=== PATIENT | male | born 1955 | race Caucasian/White ===

== ENCOUNTER 2018-10-10 00:25 | Inpatient (IN) | payer SELFPAY ==
[2018-10-10] VITALS (7 sets, daily range): BP systolic 100–141; BP diastolic 54–89
[~2018-10-10] VITALS: Ht 167.6 cm; Wt 87.0 kg
--- NOTE | 2018-10-10 00:25 | NUR ---
ED Nurse Note: pt brought in by [facility] from home c/c chest pain x 3hrs, pt reports it feels similar to the one he had before when he had heart attack, pt states he had stent placed in as well in 2013. pt states pain is heavy and pressure like, rates 8/10. pt AA&ox4, gcs=15, skin warm and dry, resp even and unlabored on RA, -n/v/d, will cont monitor. vss.
--- NOTE | 2018-10-10 00:47 | Emergency Room Report ---
History of Present Illness General Chief Complaint: Chest Pain Source: Patient, EMS Present Illness HPI Patient is a 63-year-old male presents after increased chest and abdominal pain. Patient said he had onset during rest. He had onset of symptoms approximately 3 hours prior to arrival. 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 He reports having onset of pain during supine position. He reports having some increased epigastric discomfort. He states his been off of his medications which include metoprolol as well as lisinopril. He also states his been off of his Topamax. He has prior history of chronic migraines. He denies any fever. He states that he had prior episodes of heart attack several years ago. He has current had a stent. He states he had previous stent placement at [facility].Patient states that he took 5 Excedrin Migraine today.Patient reports being off of his other medications for heart. Allergies: Coded Allergies: No Known Allergies (Unverified , 10/10/18) Patient History Past Medical History: see triage record Reviewed Nursing Documentation: PMH: Agreed; PSxH: Agreed Nursing Documentation-PMH Past Medical History: No History, Except For Hx Cardiac Problems: Yes - HEART ATTACK, STENT Review of Systems All Other Systems: negative except mentioned in HPI Physical Exam Vital Signs Date Time Temp Pulse Resp B/P (MAP) Pulse Ox O2 Delivery O2 Flow Rate FiO2 10/10/18 00:27 98.8 109 18 139/77 (97) 100 Room Air Sp02 EP Interpretation: reviewed, normal General Appearance: normal inspection, well appearing, no apparent distress, alert, GCS 15, Chronically Ill Head: atraumatic ENT: normal ENT inspection, hearing grossly normal, normal voice Neck: normal inspection, full range of motion, supple, no bony tend Respiratory: normal inspection, lungs clear, normal breath sounds, no respiratory distress, no retraction, no wheezing Cardiovascular #1: regular rate, rhythm, no edema Gastrointestinal: normal inspection, normal bowel sounds, non tender, soft, no guarding Musculoskeletal: back normal, other - fasciotomy scar left leg Neurologic: normal inspection, alert, oriented x3, responsive, perinatal tech III-XII nml as tested, speech normal, sensory deficit Psychiatric: normal inspection, judgement/insight normal, mood/affect normal Skin: no rash Medical Decision Making Diagnostic Impression: Primary Impression: Chest pain Additional Impression: ACS (acute coronary syndrome) ER Course Patient presented for chest pain. Differential diagnosis included but was not limited to acute coronary syndrome, pulmonary embolism, pneumonia, aortic dissection, shingles, pneumothorax, aortic dissection, esophageal rupture, pericarditis. Because of complexity of patient's case laboratory testing and imaging studies were ordered. Patient's laboratory testing was notable for minimally elevated creatinine. Nitroglycerin. Patient was given nitroglycerin. Patient started on Topamax due to prior history of migraine headache. Dr. Ayad Gambino was contacted for Dr. Varghese for inpatient management Labs Test 10/10/18 00:37 White Blood Count 7.9 K/UL (4.8-10.8) Red Blood Count 5.20 M/UL (4.70-6.10) Hemoglobin 16.1 G/DL (14.2-18.0) Hematocrit 49.1 % (42.0-52.0) Mean Corpuscular Volume 94 FL (80-99) Mean Corpuscular Hemoglobin 31.0 PG (27.0-31.0) Mean Corpuscular Hemoglobin Concent 32.8 G/DL (32.0-36.0) Red Cell Distribution Width 12.8 % (11.6-14.8) Platelet Count 239 K/UL (150-450) Mean Platelet Volume 6.8 FL (6.5-10.1) Neutrophils (%) (Auto) 74.2 % (45.0-75.0) Lymphocytes (%) (Auto) 17.3 % (20.0-45.0) Monocytes (%) (Auto) 6.2 % (1.0-10.0) Eosinophils (%) (Auto) 1.8 % (0.0-3.0) Basophils (%) (Auto) 0.5 % (0.0-2.0) Prothrombin Time 10.2 SEC (9.30-11.50) Prothromb Time International Ratio 1.0 (0.9-1.1) Activated Partial Thromboplast Time 26 SEC (23-33) Sodium Level 140 MMOL/L (136-145) Potassium Level 4.0 MMOL/L (3.5-5.1) Chloride Level 104 MMOL/L (98-107) Carbon Dioxide Level 23 MMOL/L (21-32) Anion Gap 13 mmol/L (5-15) Blood Urea Nitrogen 18 mg/dL (7-18) Creatinine 1.7 MG/DL (0.55-1.30) Estimat Glomerular Filtration Rate 40.9 mL/min (>60) Glucose Level 91 MG/DL (74-106) Calcium Level 8.9 MG/DL (8.5-10.1) Total Bilirubin 0.5 MG/DL (0.2-1.0) Aspartate Amino Transf (AST/SGOT) 46 U/L (15-37) Alanine Aminotransferase (ALT/SGPT) 26 U/L (12-78) Alkaline Phosphatase 91 U/L (46-116) Total Creatine Kinase 404 U/L (26-308) Creatine Kinase MB 5.9 NG/ML (0.0-3.6) Creatine Kinase MB Relative Index 1.4 Troponin I 0.031 ng/mL (0.000-0.056) Pro-B-Type Natriuretic Peptide 329 pg/mL (0-125) Total Protein 6.8 G/DL (6.4-8.2) Albumin 3.6 G/DL (3.4-5.0) Globulin 3.2 g/dL Albumin/Globulin Ratio 1.1 (1.0-2.7) Lipase 131 U/L (73-393) Salicylates Level 17.7 ug/mL (2.8-20) Serum Alcohol < 3 mg/dL EKG Diagnostic Results Rate: normal Rhythm: NSR ST Segments: no acute changes Rhythm Strip Diag. Results EP Interpretation: yes Rhythm: NSR, no PVC's, no ectopy Last Vital Signs Date Time Temp Pulse Resp B/P (MAP) Pulse Ox O2 Delivery O2 Flow Rate FiO2 10/10/18 00:27 98.8 109 18 139/77 (97) 100 Room Air Status: improved Disposition: PLACE IN OBSERVATION Condition: Stable Bruce Palafox MD Oct 10, 2018 00:47
--- NOTE | 2018-10-10 00:48 | NUR ---
ED Nurse Note: pt reports she took 5 of excedrin migraine, ERMD notified regarding administering ASA, medication was withheld due to pt's condition.
[2018-10-10] MEDS ORDERED: Topiramate 100mg tab ORAL ONE (01:00)
[2018-10-10] MEDS ORDERED: Aspirin Baby 81mg ORAL ONE (01:00)
[2018-10-10] MEDS: Nitroglycerin Subl 0.4mg tab SL PRN ×3 (01:04→01:28)
--- NOTE | 2018-10-10 01:10 | NUR ---
ED Nurse Note: verified w/ ERMD regarding nitro dose, pt was given 2 rounds on field, ermd stated it's okay to give more after one round of nitro based on pt's condition and bp.
[2018-10-10 01:14] LABS: BASOPHILS % (AUTO) 0.5 % (0.0-2.0); EOSINOPHILS % (AUTO) 1.8 % (0.0-3.0); HEMATOCRIT 49.1 % (42.0-52.0); HEMOGLOBIN 16.1 G/DL (14.2-18.0); LYMPHOCYTES % (AUTO) 17.3 % (20.0-45.0); MEAN CORPUSCULAR VOLUME 94 FL (80-99); MONOCYTES % (AUTO) 6.2 % (1.0-10.0); NEUTROPHILS % (AUTO) 74.2 % (45.0-75.0); PLATELET COUNT 239 K/UL (150-450); RED CELL DISTRIBUTION WIDTH 12.8 % (11.6-14.8); WHITE BLOOD COUNT 7.9 K/UL (4.8-10.8)
[2018-10-10 01:21] LABS: ANION GAP 13 mmol/L (5-15); BLOOD UREA NITROGEN 18 mg/dL (7-18); CALCIUM 8.9 MG/DL (8.5-10.1); CARBON DIOXIDE 23 MMOL/L (21-32); CHLORIDE 104 MMOL/L (98-107); CREATININE 1.7 MG/DL (0.55-1.30); SODIUM 140 MMOL/L (136-145)
--- NOTE | 2018-10-10 01:29 | NUR ---
ED Nurse Note: 0115 138/85 0.4mg nitro given 0120 123/85 0.4mg nitro given 0125 124/79 0.4mg nitro given, ERMD notified.
[2018-10-10 01:30] LABS: ALANINE AMINOTRANSFERASE 26 U/L (12-78); ALBUMIN 3.6 G/DL (3.4-5.0); ALBUMIN/GLOBULIN RATIO 1.1 (1.0-2.7); ALKALINE PHOSPHATASE 91 U/L (46-116); ASPARTATE AMINO TRANSFERASE 46 U/L (15-37); BILIRUBIN,TOTAL 0.5 MG/DL (0.2-1.0); CREATINE KINASE 404 U/L (26-308)
--- NOTE | 2018-10-10 02:00 | NUR ---
ED Nurse Note: pt back from CT, pt reports pain is better, resting at this time, extra blanket provided for comfort, pt on o2 =2L/min for comfort, no sx distress at this time, will cont monitor. Addendum: 10/10/[address] -> XRAY.
[2018-10-10 02:18] LABS: CKMB 5.9 NG/ML (0.0-3.6)
--- NOTE | 2018-10-10 03:24 | NUR ---
ED Nurse Note: report given to ARTHUR goel from tele.
[2018-10-10] MEDS ORDERED: EXCEDRIN MIGRA1 EAC1 PO (03:26)
[2018-10-10] MEDS ORDERED: METOPROLOL SUCC25 MG ORAL (03:26)
[2018-10-10] MEDS ORDERED: LISINOPRIL5 MG ORAL (03:26)
[2018-10-10] MEDS ORDERED: ASPIRIN81 M3 PO (03:26)
[2018-10-10] MEDS ORDERED: TOPAMAX100 MG ORAL (03:26)
[2018-10-10] MEDS ORDERED: OMEPRAZOLE10 M1 ORAL (03:26)
--- NOTE | 2018-10-10 03:29 | NUR ---
ED Nurse Note: pt transferred to tele via zac carpenter, sergior on threat monitoring analyst, no sx resp distress, care endorsed to Yonatan GIBSON, all belongings sent w/ pt w/ completed list, med recon done, receiving rn notified regarding verification of medication, unk dose.
--- NOTE | 2018-10-10 07:40 | NUR ---
NURSE NOTES: Report received from ARTHUR Tam. Pt is lying in semi-fowlers with no signs of distress. A+Ox4, denies pain/SOB. Iv site is patent and running fluids at prescribed rate. Respirations are even and unlabored on room air. Bed is at lowest position, brakes engaged, siderails x2, bed alarm on, and call light within reach. Pt is in stable condition; will continue to monitor.
--- NOTE | 2018-10-10 07:40 | NUR ---
HAND-OFF: Report given to Sommer GIBSON. Plan of care endorsed.
[2018-10-10] MEDS ORDERED: Nitroglycerin Subl 0.4mg tab SL PRN (08:45)
[2018-10-10] MEDS ORDERED: Mylanta II UD 30ml ORAL PRN (08:45)
[2018-10-10] MEDS: Metoprolol Tartrate 12.5mg TAB ORAL SCH ×2 (08:49→20:37)
[2018-10-10] MEDS: Topiramate 100mg tab ORAL SCH (09:01)
[2018-10-10] MEDS: Aspirin Baby 81mg ORAL SCH (09:01)
[2018-10-10] MEDS: Lisinopril 10mg tab ORAL SCH ×2 (09:01→20:38)
--- NOTE | 2018-10-10 10:30 | NUR ---
CASE MANAGEMENT:REVIEW 63 YR OLD FEMALE BIBA FROM HOME CC: CHEST PAIN SI: ACS 98.7 109 18 139/77 100% ON RA CR+1.7 TCK+404 CKMB+5.9 TROPONIN(-) X2 IS: NITRO X2 GIVEN MANAGER ENVIRONMENTAL HEALTH NTG SL X3 ASA PO IV PEPCID TOPAMAX PO X1 : TO TELEMETRY
--- NOTE | 2018-10-10 10:30 | History and Physical Report ---
DATE OF ADMISSION: 10/10/2018 REASON FOR ADMISSION: Chest pain. HISTORY OF PRESENT ILLNESS: The patient is a pleasant 63-year-old gentleman with known coronary artery disease, status post myocardial infarction and stent placement back in 2013. The patient has been on beta gloria and aspirin since the interval. He presented to the emergency room overnight for evaluation and care of chest pain. It had started approximately three hours prior to presentation with light activity. The patient said he was just walking around when chest pain had started. His last percutaneous coronary intervention was at [facility]. He took five Excedrin during the day for his migraine. He had not taken his Topamax. He is currently resting comfortably. No nausea, vomiting, or diarrhea currently. PAST MEDICAL HISTORY: 1. Hypertension. 2. Coronary artery disease. 3. Chronic migraines. PAST SURGICAL HISTORY: Status post PCI. ALLERGIES: No known drug allergies. SOCIAL HISTORY: No tobacco, alcohol, or illicit drug use. FAMILY HISTORY: Positive for hypertension. REVIEW OF SYSTEMS: NEUROLOGIC: The patient was having chronic headaches, migraines. CARDIOVASCULAR: He was having chest pressure, tightness, and pain. PULMONARY: No difficulty breathing, productive cough, or sputum. GASTROINTESTINAL/GENITOURINARY: No change in urinary or bowel habits. No nausea, vomiting, or diarrhea. ENDOCRINOLOGY: No night sweats, fevers, or chills. MUSCULOSKELETAL: The patient is feeling weak, tired, and fatigued. PHYSICAL EXAMINATION: VITAL SIGNS: Blood pressure 136/78, respiratory rate 24, pulse 83, and temperature 97.7. 100% oxygen saturation on 2 L nasal cannula. GENERAL: The patient is awake and alert, not in distress. HEENT: Extraocular muscles intact. No lymphadenopathy noted. Oropharyngeal mucosa is clear and dry. CARDIOVASCULAR: S1, S2. No murmurs, rubs, or gallops. Regular rate. PULMONARY: Clear to auscultation bilaterally. No rales, rhonchi, or wheezes. ABDOMEN: Nondistended and nontender. Good bowel sounds in all four quadrants. EXTREMITIES: No edema noted. LABORATORY DATA: Labs dated 10/10/2018, sodium 140, potassium 4, troponin 0.031, creatinine 1.7. White cell count 7.9, hemoglobin 16.1, and platelet count 339. ASSESSMENT AND PLAN: 1. Acute coronary syndrome, chest pain. Repeat stat troponin has been ordered. The patient is on aspirin and beta gloria. Awaiting Cardiology to evaluate and proceed accordingly. 2. Hypertension, stable. Continue current antihypertensive regimen. The patient on beta-gloria and CHASITY inhibitor. 3. Chronic migraines. Reinitiate Topamax. 4. Acute kidney injury with creatinine 1.7, likely from component of volume depletion. Continue IV fluids and repeat BMP . 5. DVT prophylaxis with SCDs. Ayad Gambino MD DR: BRISEYDA JOB#: [id number] CC:
--- NOTE | 2018-10-10 11:44 | Consultation ---
History of Present Illness General Date patient seen: Oct 10, 2018 Time patient seen: 11:43 Chief Complaint: Chest Pain Present Illness HPI The patient is a pleasant 63-year-old gentleman with known coronary artery disease, status post myocardial infarction and stent placement back in 2013. Patient presents with new onset chest pain similar to previous. Troponin negative. Chest pain started randomly during exertion. He has hx of migraine and HTN, controlled on medications. No fevers no travel no sick contacts. Allergies: Coded Allergies: No Known Allergies (Unverified , 10/10/18) Medication History Scheduled Lisinopril (Lisinopril*), Unknown Dose ORAL DAILY, (Reported) Metoprolol Succinate* (Metoprolol Succinate*), Unknown Dose ORAL DAILY, ( Reported) Omeprazole (Omeprazole), Unknown Dose ORAL DAILY, (Reported) Topiramate (Topamax), Unknown Dose ORAL EVERY 12 HOURS, (Reported) Miscellaneous Medications Aspirin (Aspirin), Unknown Dose PO, (Reported) Aspirin/Acetaminophen/Caffeine (Excedrin Migraine Caplet), Unknown Dose PO, ( Reported) Patient History Healthcare decision maker Resuscitation status Full Code Advanced Directive on File Review of Systems Constitutional: Reports: no symptoms Eye: Reports: no symptoms ENT: Reports: no symptoms Respiratory: Reports: no symptoms Cardiovascular: Reports: chest pain Gastrointestinal: Reports: no symptoms Genitourinary: Reports: no symptoms Musculoskeletal: Reports: no symptoms Skin: Reports: no symptoms Psychiatric: Reports: no symptoms Neurological: Reports: no symptoms Endocrine: Reports: no symptoms Hematologic/Lymphatic: Reports: no symptoms Physical Exam General Appearance: no apparent distress, alert Lines, tubes and drains: peripheral HEENT: normocephalic Neck: non-tender, normal alignment, supple, normal inspection Respiratory/Chest: chest wall non-tender, lungs clear Breasts: no masses Cardiovascular/Chest: normal peripheral pulses, normal rate, regular rhythm Abdomen: normal bowel sounds, non tender, soft, no organomegaly, no mass Extremities: normal range of motion, non-tender, normal inspection, no calf tenderness Skin Exam: normal pigmentation, warm/dry Neurologic: director of strategic partnerships II-XII grossly normal, no motor/sensory deficits, oriented x 3 Last 24 Hour Vital Signs Date Time Temp Pulse Resp B/P (MAP) Pulse Ox O2 Delivery O2 Flow Rate FiO2 10/10/18 09:01 141/82 10/10/18 09:00 Room Air 10/10/18 08:00 98.1 91 22 141/82 (101) 98 10/10/18 08:00 89 10/10/18 03:45 Nasal Cannula 2.0 10/10/18 03:40 97.7 83 24 136/78 (97) 98 10/10/18 03:39 80 10/10/18 03:29 98.4 78 18 148/105 100 Nasal Cannula 2.0 10/10/18 01:50 98.8 78 18 124/89 100 Room Air 10/10/18 01:28 124/89 10/10/18 01:25 123/85 10/10/18 01:04 138/85 10/10/18 00:50 98 18 Room Air 10/10/18 00:50 98.8 96 18 135/86 100 Room Air 10/10/18 00:27 98.8 109 18 139/77 (97) 100 Room Air Intake and Output 10/09/18 10/10/18 19:00 07:00 Intake Total 307.5 ml Balance 307.5 ml Intake IV Total 187.5 ml Other 120 ml # Voids 2 Laboratory Tests Test 10/10/18 00:37 10/10/18 09:20 White Blood Count 7.9 K/UL (4.8-10.8) Red Blood Count 5.20 M/UL (4.70-6.10) Hemoglobin 16.1 G/DL (14.2-18.0) Hematocrit 49.1 % (42.0-52.0) Mean Corpuscular Volume 94 FL (80-99) Mean Corpuscular Hemoglobin 31.0 PG (27.0-31.0) Mean Corpuscular Hemoglobin Concent 32.8 G/DL (32.0-36.0) Red Cell Distribution Width 12.8 % (11.6-14.8) Platelet Count 239 K/UL (150-450) Mean Platelet Volume 6.8 FL (6.5-10.1) Neutrophils (%) (Auto) 74.2 % (45.0-75.0) Lymphocytes (%) (Auto) 17.3 % (20.0-45.0) L Monocytes (%) (Auto) 6.2 % (1.0-10.0) Eosinophils (%) (Auto) 1.8 % (0.0-3.0) Basophils (%) (Auto) 0.5 % (0.0-2.0) Prothrombin Time 10.2 SEC (9.30-11.50) Prothromb Time International Ratio 1.0 (0.9-1.1) Activated Partial Thromboplast Time 26 SEC (23-33) Sodium Level 140 MMOL/L (136-145) Potassium Level 4.0 MMOL/L (3.5-5.1) Chloride Level 104 MMOL/L (98-107) Carbon Dioxide Level 23 MMOL/L (21-32) Anion Gap 13 mmol/L (5-15) Blood Urea Nitrogen 18 mg/dL (7-18) Creatinine 1.7 MG/DL (0.55-1.30) H Estimat Glomerular Filtration Rate 40.9 mL/min (>60) Glucose Level 91 MG/DL (74-106) Calcium Level 8.9 MG/DL (8.5-10.1) Total Bilirubin 0.5 MG/DL (0.2-1.0) Aspartate Amino Transf (AST/SGOT) 46 U/L (15-37) H Alanine Aminotransferase (ALT/SGPT) 26 U/L (12-78) Alkaline Phosphatase 91 U/L (46-116) Total Creatine Kinase 404 U/L (26-308) H Creatine Kinase MB 5.9 NG/ML (0.0-3.6) H Creatine Kinase MB Relative Index 1.4 Troponin I 0.031 ng/mL (0.000-0.056) 0.014 ng/mL (0.000-0.056) Pro-B-Type Natriuretic Peptide 329 pg/mL (0-125) H Total Protein 6.8 G/DL (6.4-8.2) Albumin 3.6 G/DL (3.4-5.0) Globulin 3.2 g/dL Albumin/Globulin Ratio 1.1 (1.0-2.7) Lipase 131 U/L (73-393) Salicylates Level 17.7 ug/mL (2.8-20) Serum Alcohol < 3 mg/dL Height (Feet): 5 Height (Inches): 6.00 Weight (Pounds): 1782 Medications Current Medications Medications (Trade) Dose Ordered Sig/Ramone Route PRN Reason Start Time Stop Time Status Last Admin Dose Admin Acetaminophen (Tylenol) 650 mg Q4H PRN ORAL Mild Pain (Pain Scale 1-3) 10/10/18 08:45 11/09/18 08:44 Al Hydroxide/Mg Hydroxide (Mylanta II) 30 ml Q6H PRN ORAL dyspepsia 10/10/18 08:45 11/09/18 08:44 Aspirin (ASA) 81 mg DAILY ORAL 10/10/18 09:00 11/09/18 08:59 10/10/18 09:01 Dextrose (Dextrose 50%) 25 ml Q30M PRN IV Hypoglycemia 10/10/18 08:45 11/09/18 08:44 Dextrose (Dextrose 50%) 50 ml Q30M PRN IV Hypoglycemia 10/10/18 08:45 11/09/18 08:44 Diphenhydramine HCl (Benadryl) 25 mg Q6H PRN ORAL Itching/Pruritis 10/10/18 08:45 11/09/18 08:44 Famotidine (Pepcid) 40 mg DAILY ORAL 10/10/18 09:00 11/09/18 08:59 10/10/18 09:01 Lisinopril (Zestril) 10 mg Q12HR ORAL 10/10/18 09:00 11/09/18 08:59 10/10/18 09:01 Metoprolol Tartrate (Lopressor) 12.5 mg Q12HR ORAL 10/10/18 09:00 11/09/18 08:59 Nitroglycerin (Ntg) 0.4 mg Q5M PRN SL Prn Chest Pain 10/10/18 08:45 11/09/18 08:44 Ondansetron HCl (Zofran) 4 mg Q6H PRN IVP Nausea & Vomiting 10/10/18 08:45 11/09/18 08:44 Sodium Chloride 1,000 ml @ 75 mls/hr [id number] IV 10/10/18 04:15 11/09/18 04:14 10/10/18 04:37 Topiramate (Topamax) 100 mg DAILY ORAL 10/10/18 09:00 11/09/18 08:59 10/10/18 09:01 Assessment/Plan Status: stable Assessment/Plan: Assessment Chest pain coronary artery disease Unstable angina Hypertension Migraines GLORIA PLAN -aspirin -statin -nitro prn -Hold heparin -serial EKG/troponin -Stress test to evaluate for ischemia given hx of DC/PCI -IV fluid hydration -Continue BP medications -TTE to evaluate LV function Cliff Harris MD Oct 10, 2018 11:44
--- NOTE | 2018-10-10 12:02 | Diagnostic Imaging Report ---
Indication: Chest pain Technique: One view of the chest Comparison: none Findings: Heart size is borderline enlarged. Lungs and pleural spaces are clear. Impression: No acute process
--- NOTE | 2018-10-10 13:08 | Cardiology Report ---
APPROVED REPORT EKG Measurement Heart [id number] Sinus rhythm with sinus arrhythmia with occasional premature ventricular complexes Low voltage QRS Cannot rule out Anterior infarct, age undetermined Abnormal ECG
--- NOTE | 2018-10-10 14:56 | NUR ---
Myocardial Perfusion scan complete.
--- NOTE | 2018-10-10 15:16 | Diagnostic Imaging Report ---
Indications: Chest pain Technique: Single day single isotope protocol utilized. Initially, resting images obtained using IV administration 10.1 millicuries 99M technetium Myoview. Subsequently, patient underwent treadmill stress testing. See cardiology report for details. During exercise, IV administration 30.7 mCi 99 M technetium Myoview. SPECT and planar images obtained. SPECT images gated to 8 phases of the cardiac cycle were also obtained, and reformatted into cine images for evaluation of ejection fraction. Comparison: none Findings: Per cardiology report, patient experienced pressure did not in the chest during exercise. Patient achieved a peak heart rate of 171 bpm, well in excess of the target heart rate of 133 bpm. Per cardiology report, resting EKG demonstrates normal sinus rhythm. No ST changes noted during exercise. Imaging demonstrates a fixed post stress apical perfusion defect which is unchanged on the resting images. The cardiac chamber size is normal. Calculated post stress ejection fraction 62%. No definite focal wall motion abnormality Impression: Nonischemic clinical response to pharmacologic stress, per cardiology report Nonischemic electrocardiographic response to pharmacologic stress, per cardiology report Fixed apical perfusion defect consistent with infarct. No evidence of ischemia, at level of stress achieved Calculated post stress ejection fraction 62%
[2018-10-10] MEDS ORDERED: 1/2 NS 1000ml IV ONE (15:28)
--- NOTE | 2018-10-10 19:07 | NUR ---
HAND-OFF: Report given to ARTHUR Tam. Pt is in stable condition; plan of care endorsed.
--- NOTE | 2018-10-10 19:10 | NUR ---
NURSE NOTES: Received patient from Sommer GIBSON. Patient awake in bed with at bedside. PIV on left wrist intact, patent, with 1/2NS infusing at 75ml/hr. On room air, no s/s of respiratory distress. Bed in low position, locked, call light within reach. No c/o pain, SOB, or headache. Calm and cooperative.
--- NOTE | 2018-10-10 21:00 | NUR ---
NURSE NOTES: Bilateral SCDs on for DVT prevention, educated patient on how to remove if he needs to get out of bed.
--- NOTE | 2018-10-10 22:00 | NUR ---
NURSE NOTES: Observed patient successfully remove SCD to use the bathroom and placed back on when back in bed.
[2018-10-11] VITALS: BP 105/64
[2018-10-11 04:00] VITALS: BP 128/72
--- NOTE | 2018-10-11 07:15 | NUR ---
HAND-OFF: Report given to Sommer GIBSON. Plan of care endorsed.
[2018-10-11 08:00] VITALS: BP 97/56
--- NOTE | 2018-10-11 08:15 | Nephrology Progress Note ---
Assessment/Plan Status: stable Assessment/Plan: A/P 1) ACS/Chest Pain- h/o PCI - appreciate cardiology - stress test and TTE - DC once cleared by Cardiology 2) HTN- stable 3) GLORIA- Cr 1.7 , AM labs pending 4) DVT propylaxis- SCDs Subjective Date patient seen: Oct 11, 2018 Time patient seen: 08:13 ROS Limited/Unobtainable: No Allergies: Coded Allergies: No Known Allergies (Unverified , 10/10/18) Subjective Patient resting comfortably. No active chest pain Objective Last 24 Hour Vital Signs Date Time Temp Pulse Resp B/P (MAP) Pulse Ox O2 Delivery O2 Flow Rate FiO2 10/11/18 04:00 98.0 74 18 128/72 (90) 97 10/11/18 03:29 93 10/11/18 00:00 97.9 68 18 105/64 (78) 97 10/10/18 23:29 58 10/10/18 21:00 Room Air 10/10/18 20:38 130/71 10/10/18 20:37 83 130/71 10/10/18 20:00 98.7 83 20 130/71 (90) 97 10/10/18 19:41 95 10/10/18 16:00 85 10/10/18 16:00 97.9 93 21 100/54 (69) 96 10/10/18 12:00 89 10/10/18 12:00 98.0 89 20 109/64 (79) 98 10/10/18 09:01 141/82 10/10/18 09:00 Room Air Intake and Output 10/10/18 10/11/18 19:00 07:00 Intake Total 1250 ml 1140 ml Balance 1250 ml 1140 ml Intake Oral 500 ml 240 ml IV Total 750 ml 900 ml # Voids 2 3 Laboratory Tests 10/10/18 09:20: Erythrocyte Sedimentation Rate 6, Troponin I 0.014, C-Reactive Protein, Quantitative 1.6H Height (Feet): 5 Height (Inches): 6.00 Weight (Pounds): 191 General Appearance: no apparent distress, alert EENT: normal ENT inspection Neck: normal alignment, supple Cardiovascular: normal rate, regular rhythm Respiratory/Chest: lungs clear, normal breath sounds Abdomen: non tender, soft Edema: no edema noted Arm (L), no edema noted Arm (R), no edema noted Leg (L), no edema noted Leg (R), no edema noted Pedal (L), no edema noted Pedal (R), no edema noted Generalized Ayad Gambino MD Oct 11, 2018 08:15
[2018-10-11 08:42] VITALS: BP 97/56
[2018-10-11] MEDS: Metoprolol Tartrate 12.5mg TAB ORAL SCH (08:42)
[2018-10-11] MEDS: Lisinopril 10mg tab ORAL SCH (08:42)
[2018-10-11 08:56] LABS: BASOPHILS % (AUTO) 0.5 % (0.0-2.0); EOSINOPHILS % (AUTO) 3.4 % (0.0-3.0); HEMATOCRIT 43.4 % (42.0-52.0); HEMOGLOBIN 14.2 G/DL (14.2-18.0); LYMPHOCYTES % (AUTO) 23.1 % (20.0-45.0); MEAN CORPUSCULAR VOLUME 94 FL (80-99); MONOCYTES % (AUTO) 9.6 % (1.0-10.0); NEUTROPHILS % (AUTO) 63.3 % (45.0-75.0); PLATELET COUNT 206 K/UL (150-450); RED BLOOD COUNT 4.61 M/UL (4.70-6.10); RED CELL DISTRIBUTION WIDTH 13.1 % (11.6-14.8); WHITE BLOOD COUNT 4.9 K/UL (4.8-10.8)
[2018-10-11] MEDS: Topiramate 100mg tab ORAL SCH (08:59)
[2018-10-11] MEDS: Aspirin Baby 81mg ORAL SCH (08:59)
--- NOTE | 2018-10-11 09:13 | Cardiology Progress Note ---
Assessment/Plan Status: stable Assessment/Plan Assessment/Plan Status: stable Assessment/Plan: Assessment Chest pain coronary artery disease Unstable angina Hypertension Migraines GLORIA PLAN -aspirin -statin -nitro prn -serial EKG/troponin -> negative -Stress test to evaluate for ischemia given hx of [place]/PCI --> negative -IV fluid hydration -Continue BP medications -TTE to evaluate LV function -> normal LV function Ok to discharge from cardiology perspective Subjective Cardiovascular: Reports: no symptoms Respiratory: Reports: no symptoms Gastrointestinal/Abdominal: Reports: no symptoms Genitourinary: Reports: no symptoms Subjective No acute events, no complaints, TTE negative, stress test negative. Objective Last 24 Hour Vital Signs Date Time Temp Pulse Resp B/P (MAP) Pulse Ox O2 Delivery O2 Flow Rate FiO2 10/11/18 08:42 97/56 10/11/18 08:42 72 97/56 10/11/18 08:00 98.1 72 20 97/56 (70) 95 10/11/18 04:00 98.0 74 18 128/72 (90) 97 10/11/18 03:29 93 10/11/18 00:00 97.9 68 18 105/64 (78) 97 10/10/18 23:29 58 10/10/18 21:00 Room Air 10/10/18 20:38 130/71 10/10/18 20:37 83 130/71 10/10/18 20:00 98.7 83 20 130/71 (90) 97 10/10/18 19:41 95 10/10/18 16:00 85 10/10/18 16:00 97.9 93 21 100/54 (69) 96 10/10/18 12:00 89 10/10/18 12:00 98.0 89 20 109/64 (79) 98 General Appearance: no apparent distress, alert EENT: PERRL/EOMI, TMs normal, pharynx normal Neck: non-tender, normal alignment, supple Rhythm: NSR Cardiovascular: normal peripheral pulses, normal rate, regular rhythm Respiratory/Chest: chest wall non-tender, lungs clear, normal breath sounds Abdomen: normal bowel sounds, non tender, soft, no organomegaly, no mass Extremities: normal range of motion, non-tender, normal inspection Neurologic: choke reamer II-XII grossly normal, no motor/sensory deficits Intake and Output 10/10/18 10/11/18 19:00 07:00 Intake Total 1250 ml 1140 ml Balance 1250 ml 1140 ml Intake Oral 500 ml 240 ml IV Total 750 ml 900 ml # Voids 2 3 Laboratory Tests Test 10/10/18 09:20 10/11/18 07:14 Erythrocyte Sedimentation Rate 6 MM/HR (0-20) Troponin I 0.014 ng/mL (0.000-0.056) C-Reactive Protein, Quantitative 1.6 mg/dL (0.00-0.90) H White Blood Count 4.9 K/UL (4.8-10.8) Red Blood Count 4.61 M/UL (4.70-6.10) L Hemoglobin 14.2 G/DL (14.2-18.0) Hematocrit 43.4 % (42.0-52.0) Mean Corpuscular Volume 94 FL (80-99) Mean Corpuscular Hemoglobin 30.8 PG (27.0-31.0) Mean Corpuscular Hemoglobin Concent 32.7 G/DL (32.0-36.0) Red Cell Distribution Width 13.1 % (11.6-14.8) Platelet Count 206 K/UL (150-450) Mean Platelet Volume 6.0 FL (6.5-10.1) L Neutrophils (%) (Auto) 63.3 % (45.0-75.0) Lymphocytes (%) (Auto) 23.1 % (20.0-45.0) Monocytes (%) (Auto) 9.6 % (1.0-10.0) Eosinophils (%) (Auto) 3.4 % (0.0-3.0) H Basophils (%) (Auto) 0.5 % (0.0-2.0) Sodium Level Pending Potassium Level Pending Chloride Level Pending Carbon Dioxide Level Pending Blood Urea Nitrogen Pending Creatinine Pending Estimat Glomerular Filtration Rate Pending Glucose Level Pending Calcium Level Pending Cliff Harris MD Oct 11, 2018 09:13
[2018-10-11 09:31] LABS: ANION GAP 11 mmol/L (5-15); BLOOD UREA NITROGEN 16 mg/dL (7-18); CALCIUM 8.7 MG/DL (8.5-10.1); CARBON DIOXIDE 22 MMOL/L (21-32); CHLORIDE 110 MMOL/L (98-107); CREATININE 1.6 MG/DL (0.55-1.30); POTASSIUM 3.8 MMOL/L (3.5-5.1); SODIUM 143 MMOL/L (136-145)
--- NOTE | 2018-10-11 10:08 | NUR ---
NURSE NOTES: Spoke with patient's ex and told her patient is to be discharged around 11 am.
--- NOTE | 2018-10-11 12:58 | NUR ---
NURSE NOTES: Discharge packet signed. Belongings list signed. Pt leaving with phone and laptop and clothes and wallet. Pt states he has all of his belongings he came with. IV, child monitor, and wristband removed. Pt is stable, VSS. Pt discharged safely from floor with friend, L[place] to private vehicle. All questions answered and pt to follow up with primary provider within one week.
--- NOTE | 2018-10-12 10:31 | Discharge Summary ---
Discharge Summary Discharge Summary _ DATE OF ADMISSION: 10/10/2018 DATE OF DISCHARGE: 10/11/2018 DISCHARGED BY: Dr. Ayad Gambino CONSULTANTS: Dr. Cliff Harris BRIEF HOSPITAL COURSE: Patient is a 63-year-old gentleman with known coronary artery disease, status post myocardial infarction and stent placement back in 2013. Patient had been on beta-gloria and aspirin. He presented to the emergency room for evaluation of chest pain. Pain started 3 hours prior to presentation. Patient was walking around when chest pain started. His last percutaneous coronary intervention was at [facility]. He had been off his Topamax which he takes for chronic migraines. He complained of headache and took five Excedrin migraine. On evaluation at ED, vital signs were stable. Blood work did not show any leukocytosis, hemoglobin and hematocrit were stable. Electrolytes were normal. Creatinine was elevated to 1.7. Total CK was elevated at 404. CK-MB 5.9. Troponin was 0.0 31. EKG showed normal sinus rhythm with no acute changes. Chest x-ray did not show any acute process. He was given nitroglycerin. He was given Topamax for migraine headaches. Due to his prior history of SC and high risk, he was then admitted for evaluation of acute coronary syndrome. Cardiac enzymes were monitored. He was given aspirin and was resumed on metoprolol 12.5 mg twice daily and lisinopril 10 mg daily. He was restarted on Topamax 100 mg daily. He was given IV hydration. Cardiac enzymes were negative. He underwent myocardial perfusion scan. Stress test was negative. Transthoracic echocardiogram was normal per aluminum siding mechanic report (official echocardiogram result was unavailable during the dictation). Patient was cleared for discharge home. FINAL DIAGNOSES: Chest pain in a patient with prior history of CAD with PCI Hypertension Acute kidney injury Unstable angina Migraine headaches DISPOSITION: Patient was discharged home. DISCHARGE MEDICATIONS: Refer to Discharge Medication List. DISCHARGE INSTRUCTIONS: Follow-up with PCP in a week. I have been assigned to complete a discharge summary on this account, I was not involved with the patient's management.--BROCK Ny Jacqueline Robles NP Oct 12, 2018 10:31
== END 2018-10-11 13:02 | disposition home or self-care (01) | DRG 303 ==
LOC: EDBD 00:25 → EMR 00:39 → 2E 01:45 → EDBEDREQ 03:28
DX: I25.110 Atherosclerotic heart disease of native coronary artery with unstable angina pectoris (principal); N17.9 Acute kidney failure, unspecified; Z95.5 Presence of coronary angioplasty implant and graft; I25.2 Old myocardial infarction; I10 Essential (primary) hypertension; G43.909 Migraine, unspecified, not intractable, without status migrainosus
CPT/HCPCS: 36415; 71045; 78452; 80048; 80053; 80329; 82550; 82553; 83690; 83880; 84484; 85025; 85610; 85651; 85730; 86140; 93005; 93017; 93306; 96374; 99285